=== PATIENT | male | born 1980 | race Caucasian/White ===

== ENCOUNTER 2025-06-11 07:14 | Emergency (ER) | payer OTHER, SELFPAY ==
[2025-06-11 07:30] VITALS: BP 124/88
--- NOTE | 2025-06-11 07:49 | ED.GENMED ---
History of Present Illness
General
Chief Complaint: Chest Pain
Source: patient
Exam Limitations: none
Time Seen by Provider: 06/11/25 07:48
History of Present Illness
History of Present Illness:
45yoM with a history of ankylosing spondylitis on Humira presenting for evaluation of palpitations. Patient woke up this morning around 4 AM when he noticed the sensation of his heart beating. Palpitations were intermittent throughout the morning
and he decided to come to the ED for evaluation. He had some mild tightness in his chest but denies any overt pain. He denies any associated diaphoresis, nausea, shortness of breath, dizziness. Patient is asymptomatic on initial exam.
Past History
Past History
ED Past Medical History: Other (Rheumatoid arthritis)
ED Past Surgical History: None
Social History
Tobacco: Former smoker
Alcohol: Occasional
Drug: None
Phy Exam
General Physical Exam
General Presentation: well appearing and no apparent distress
General Skin: warm and dry
General Habitus: normal
General Mental: alert
ENT Exam
ENT Exam: normocephalic
Cardiovascular Exam
Cardiovascular Exam: regular rate/rhythm, no edema and no murmur
Pulmonary Exam
Pulmonary Exam: lungs clear, no respiratory distress, no rales, no crackles, no rhonchi and no wheezing
Neurological Exam
Neurological Exam: alert
[place] Coma Scale
Eye Opening: Spontaneous
Verbal Response: Oriented
Motor Response: Obeys Commands
GCS Total Score: 15
Skin Exam
Skin Exam: normal color and warm/dry
Psychiatric Exam
Psychiatric Exam: normal mood/affect
Scores
Heart Score for Chest Pain Patients
STEMI patient?: No
History: Slightly or Non-Suspicious
ECG: Normal
Age: </= 45 years
Risk Factors: No Risk Factors
Troponin: </= Normal Limit
Heart Score for Chest Pain Patients: 0
Heart Score Risk: 2.5% MACE over next 6 weeks
Course
Orders/Labs/Results
Orders:
Orders
06/11/25 07:19
EKG [Electrocardiogram (*1)] Urgent
Reason for Study: Chest Pain
EKG- Treatment ONCE
06/11/25 07:56
Cardiac Monitoring- Treatment ONCE
06/11/25 08:06
Complete Blood Count/With Diff Urgent
Comprehensive Metabolic Panel Urgent
Magnesium Urgent
TSH Reflex To Free T4 Urgent
Troponin I Urgent
Abnormal Lab Results
06/11/25
08:06
WBC 4.5 L 10^3/uL
(4.8-10.8)
Glucose 108 H mg/dl
(70-99)
Alkaline Phosphatase 36 L U/L
(38-126)
06/11/25 08:06
06/11/25 08:06
Vital Signs
Initial and Last Documented VS:
Initial Vital Signs
Temp Pulse Resp BP Pulse Ox
99.0 F 77 18 124/88 96
06/11/25 07:30 06/11/25 07:30 06/11/25 07:30 06/11/25 07:30 06/11/25 07:30
Last Documented Vital Signs
Temp Pulse Resp BP Pulse Ox
99.0 F 66 11 119/81 96
06/11/25 07:30 06/11/25 09:00 06/11/25 09:00 06/11/25 09:00 06/11/25 08:45
MDM/Problems Addressed
Differential Diagnosis Includes:
45yoM here with palpitations that began this morning. Reports sensation of heart beating. No associated chest pain, SOB, dizziness. Symptoms now resolved. VSS. He is well appearing in no distress. Exam reassuring. Differential diagnosis includes
but is not limited to: PVCs, arrhythmia, thyroid dysfunction, electrolyte abnormality, doubt ACS
Initial ED plan: Triage EKG shows normal sinus rhythm without ischemic changes or ectopy. Will check cardiac labs, magnesium, and TSH. Patient placed on manager continuous improvement.
*Pulse Oximetry
SaO2: 96
Oxygen Mode of Delivery: Room air
Patient hypoxic: no (96%)
*EKG
Interpreted by ED Provider?: Yes
EKG Intrepretation Date: 06/11/25
Heart Rate: 82
Rate: normal
Rhythm: sinus
[place]: normal axis
Interval: normal interval
QRS Pattern: normal QRS
Ischemia: no ischemia
*Critical Care Note
Total Time (30-74mins, 75-104mins- exclusive of procedures): Not Applicable
Update Note
Update Note:
Labs unremarkable including normal electrolytes, renal function, TSH, and troponin. No telemetry events throughout ED stay. Patient remains asymptomatic on reassessment. No indication for hospitalization. He was advised to follow-up with his PCP
and discussed need for possible Holter monitor if symptoms recur. ED return precautions reviewed. Patient in agreement with plan and was discharged in stable condition.
ED Attending Note
-
Portions of this chart may have been created with voice recognition software.� Occasional wrong word or��sound alike� substitutions may have occurred due to the inherent limitations of voice recognition software.
Discharge Plan
Departure
Patient Disposition: Home (Routine Discharge)
Date of Disposition: 06/11/25
Time of Disposition: 09:15
Patient with high blood pressure during this ER visit?: No
Discharge Problem:
Palpitations
Instructions: Heart Palpitations
Prescriptions:
No Action
pantoprazole 40 MG tablet,delayed release (DR/EC)
40 mg PO DAILY Qty: 30 0RF
Referrals:
Nestor Walsh MD [Family Provider, Radiology]
Activity Restrictions/Additional Instructions:
Please follow-up with your family doctor. You will likely need a Holter monitor if symptoms recur.
Return to the ER with any new or worsening symptoms.
Interventions
Interventions:
*Risk Screen - Suicide Last Done: 06/11/25 07:30
*General Assessment Last Done: 06/11/25 08:03
*Neglect/Abuse Screening Last Done: 06/11/25 07:30
*ED- Fall Risk Assessment Last Done: 06/11/25 08:03
*ED COVID-19 Vaccine History Last Done: 06/11/25 07:30
ED- Cardiac Assessment Last Done: 06/11/25 08:22
Discharge Date and Time
Print Language: SINHALA
[2025-06-11 08:02] VITALS: BP 123/93; BMI 23.6
[2025-06-11 08:19] LABS: Hematocrit 44.0 % (39.0-52.0); Hemoglobin 15.4 g/dL (13.0-18.0); Mean Corp Hgb Conc. 35.0 g/dL (33.0-37.0); Mean Corpuscular Volume 82.9 fL (80.0-94.0); Nucleated Red Blood Cells % 0 % (-); Platelet Count 263 10^3/uL (130-400); Red Cell Dist. Width 12.6 % (11.5-14.5)
[2025-06-11 08:33] LABS: ALT (SGPT) 21 U/L (0-50); AST (SGOT) 17 U/L (17-59); Albumin 4.6 g/dl (3.5-5.0); Alkaline Phosphatase 36 U/L (38-126); Blood Urea Nitrogen 18 mg/dl (9-20); Calcium 9.9 mg/dl (8.4-10.2); Carbon Dioxide 27 mmol/L (22-30); Chloride 105 mmol/L (98-107); Estimated Creatinine Clearance 88 ml/min; Glucose 108 mg/dl (70-99); Magnesium 2.0 mg/dl (1.6-2.3); Potassium 4.4 mmol/L (3.5-5.1); Sodium 139 mmol/L (135-145); Total Protein 8.1 g/dl (6.3-8.2); eGFR > 60.00
[2025-06-11 08:44] LABS: Troponin I < 0.012 ng/ml
[2025-06-11 09:00] VITALS: BP 119/81
== END 2025-06-11 10:00 | disposition home or self-care (01) ==
LOC: EMR 07:14
PROVIDERS: Physician Assistant; EMERGENCY PHYSICIAN Emergency Medicine; FAMILY PHYSICIAN Radiology Radiation Oncology
DX: R00.2 Palpitations (principal); M45.9 Ankylosing spondylitis of unspecified sites in spine; M06.9 Rheumatoid arthritis, unspecified; Z87.891 Personal history of nicotine dependence
CPT/HCPCS: 99284; 80053; 83735; 84443; 84484; 85025; 93005